=== PATIENT | male | born 1975 | race Caucasian/White ===

== ENCOUNTER 2022-08-25 08:50 | Emergency (ER) | payer BC, SELFPAY ==
[2022-08-25 09:01] VITALS: BP 131/83; PULSE 78; RESP 16; TEMP 36.2; O2SAT 99
--- NOTE | 2022-08-25 09:29 | ED.ABDPAIN ---
HPI - Abdominal Pain General Chief Complaint: Unspecified Stated Complaint: RIGHT SIDE PAIN Time Seen by Provider: 08/25/22 09:29 Source: patient, RN notes reviewed and old records reviewed Mode of arrival: ambulatory Limitations: no limitations History of Present Illness HPI narrative: A 47-year-old male who presents to [facility] with complaints of lifting something heavy yesterday and bulging of hernia in right groin increased but he was able to push it back in. Patient denies any acute pain to his abdomen at this time, denies any difficulty with bowels or bladder function. Patient reports no acute pain to right groin at this time. Patient states that he was diagnosed with right inguinal hernia a year ago but didn't need surgery at that time.Reports no testicle pain or swelling. MD elicited complaint: other (concern of increase in hernia) Pertinent past history: other (previously told he has hernia right groin area) Related Data Allergies Allergy/AdvReac Type Severity Reaction Status Date / Time aspirin Allergy Unknown Other Verified 08/25/22 09:24 Review of Systems Review of Systems: CONSTITUTIONAL: Denies fever, chills, or sweats. ENT: Denies rhinorrhea, congestion, sore throat, or otalgia. CARDIOVASCULAR: Denies chest pain, palpitations, or edema. RESPIRATORY: Denies cough or dyspnea. GASTROINTESTINAL: Reports no acute abdominal pain, nausea, vomiting, diarrhea.Reports increased bulging right groin yesterday but went back in, history of hernia. GENITOURINARY: Denies dysuria or hematuria. SKIN: Denies rash or itching. MUSCULOSKELETAL: Denies back pain, joint pain, or myalgia. NEUROLOGIC: Denies headache, numbness, or weakness. All systems reviewed & are unremarkable except as noted in HPI and below [facility] Past Medical History Medical History (Updated 08/29/22 @ 07:46 by Vidhi Pisano NP) Alcoholism Anxiety and depression Bipolar disorder Hernia, inguinal right Hypertension Family History Family History (Updated 05/23/14 @ 07:13 by DOCTOR UNKNOWN) Mother Family history of thyroid disease Family history of rheumatoid arthritis Father Hypertension Malignant neoplasm of prostate Sibling Hypertension Grandparent Family history of rheumatoid arthritis Diabetes mellitus Social History Social History (Updated 08/25/22 @ 09:43 by Vidhi Pisano NP) Smoking status: Never smoker Alcohol intake: current Substance use: current Substance use type: marijuana Living arrangements: homeless Gender identity (if verbalized by the patient): Male Comments At time of signature, agree with nursing past medical, surgical, social and family history. There is no relevant family history pertinent to the presenting complaint Exam Narrative: GENERAL: Well-appearing, well-nourished, and in no acute distress. HEAD: Normocephalic, atraumatic. EYES: PERRLA, conjunctivae clear, and EOMI. ENT: Nares clear. Mucous membranes moist. Oropharynx without edema, erythema, or lesions. Tonsils not enlarged and without exudate. NECK: Supple. No lymphadenopathy CHEST: Speaks in full sentences. No respiratory distress.SAO2 99% on room air HEART: Regular rate and rhythm. ABDOMEN: Soft, flat, nondistended. No guarding, rebound tenderness, or rigid. No pulsatilla masses. Bowel sounds present in all four quadrants. No organomegaly. Negative Craven?s sign. No periumbilical tenderness. No Supra public tenderness or acute right groin distension noted. Good femoral pulses bilaterally. No scars or surface trauma. SKIN: Warm, dry, no rash. NEURO:? Alert and oriented x3. PSYCH: Normal mood and affect Course Course Emergency Course: Patient is aware of diagnosis, understands and agrees to treatment plan.? Anticipatory guidance given.? Patient agrees to follow-up as directed and is aware of reasons to seek care at the emergency department. Portions of this record may have been created with voice recognitio
== END 2022-08-25 10:02 | disposition home or self-care (01) ==
PROVIDERS: Emergency Provider Registered Nurse
DX: K40.90 Unilateral inguinal hernia, without obstruction or gangrene, not specified as recurrent (principal); F12.90 Cannabis use, unspecified, uncomplicated; I10 Essential (primary) hypertension
CPT/HCPCS: 99211; G0463